=== PATIENT | female | born 1985 | race Hispanic/Latino ===

== ENCOUNTER 2018-07-24 22:04 | Emergency (ER) | payer BC ==
[2018-07-24 22:10] VITALS: BMI 47.4
[2018-07-24 22:11] VITALS: TEMP 99.5
[2018-07-24] MEDS ORDERED: levETIRAcetam 500 MG in Sodium Chloride 0.9% 100 ML IV STA (22:49)
[2018-07-24 23:02] LABS: BASO % 0.4 % (0.0-2.0); EOS # 0.1 K/uL (0.0-0.7); EOS % 1.7 % (0.0-4.0); LYMPH # 1.2 K/uL (1.0-4.3); LYMPH % 15.6 % (20.0-40.0); MEAN CELL VOLUME 91.1 fl (81.0-99.0); MEAN CORPUSCULAR HEMOGLOBIN 30.7 pg (27.0-31.0); MEAN CORPUSCULAR HGB CONC 33.7 g/dL (33.0-37.0); MEAN PLATELET VOLUME 8.7 fl (7.2-11.7); MONO # 0.5 K/uL (0.0-0.8); MONO % 6.8 % (0.0-10.0); NEUT # 5.8 K/uL (1.8-7.0); NEUT % 75.5 % (50.0-75.0); NRBC % 0.2 % (0.0-0.0); RBC 3.92 Mil/uL (3.80-5.20); RED CELL DISTRIBUTION WIDTH 13.1 % (11.5-14.5); WHITE BLOOD COUNT 7.7 K/uL (4.8-10.8)
[2018-07-24 23:12] LABS: BLOOD UREA NITROGEN 19 mg/dl (7-17); CALCIUM 9.1 mg/dL (8.4-10.2); GFR NON-AFRICAN AMERICAN > 60
[2018-07-24] MEDS ORDERED: Potassium Chloride 20 mEq ER Tab PO ONE ×2 (23:18→23:27)
[2018-07-24 23:45] LABS: ALB/GLOB RATIO 0.9 (1.0-2.1); ALBUMIN 4.1 g/dL (3.5-5.0); BILIRUBIN,DIRECT 0.1 mg/ml (0.0-0.4)
--- NOTE | 2018-07-25 00:17 | ED PDOC ---
HPI: Seizure Time Seen by Provider: 07/24/18 22:15 Chief Complaint (Nursing): Seizure Chief Complaint (Provider): Seizure History Per: Patient, Family () History/Exam Limitations: no limitations Recent Seizure Activity Began: Mins Ago: (30) Number Of Seizures: One Length Of Seizures (Duration): Minutes (1) Associated Symptoms: denies: Bit Tongue, Incontinence Of Urine, Incontinence Of Stool, Injury As A Result Of Seizure Activity Post-ictal Period: Duration In Mins: (20) Additional Complaint(s): 33 year old female (A0) with a history of tonic clonic seizures presents to the ED for evaluation after 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 Patient denies head injury, fall, currently she is not complaining of anything, She is currently compliant with Kepra 500 mg BID although she took last dose of Keppra not on time but late. The last tonic clonic seizure she had was last year in April. Patient is 7 weeks , but denies any pain or bleeding. She feels tired due to but denies chest pain, weakness, numbness, headache, vomiting, or any other medical complaints. Neurologist: not in [place] PMD: not in [place] Past Medical History Reviewed: Historical Data, Nursing Documentation, Vital Signs Vital Signs: Last Vital Signs Temp 99.5 F 07/24/18 22:08 Pulse 138 H 07/24/18 22:08 Resp 20 07/24/18 22:08 BP 141/84 07/24/18 22:08 Pulse Ox 99 07/24/18 22:08 - Medical History PMH: Seizures Other PMH: autoimmune hepatitis - Surgical History Surgical History: No Surg Hx - Family History Family History: States: Unknown Family Hx - Allergies Allergies/Adverse Reactions: Allergies Allergy/AdvReac Type Severity Reaction Status Date / Time No Known Allergies Allergy Verified 07/24/18 22:08 Review of Systems ROS Statement: Except As Marked, All Systems Reviewed And Found Negative Gastrointestinal: Negative for: Vomiting Neurological: Positive for: Seizures. Negative for: Weakness, Numbness, Headache Physical Exam - Reviewed Nursing Documentation Reviewed: Yes Vital Signs Reviewed: Yes - Physical Exam Appears: Positive for: Non-toxic, No Acute Distress Head Exam: Positive for: ATRAUMATIC, NORMAL INSPECTION, NORMOCEPHALIC Skin: Positive for: Normal Color, Warm, Dry Eye Exam: Positive for: Normal appearance, EOMI, PERRL Neck: Positive for: Normal Cardiovascular/Chest: Positive for: Regular Rate, Rhythm. Negative for: Murmur Respiratory: Positive for: Normal Breath Sounds. Negative for: Respiratory Distress Gastrointestinal/Abdominal: Positive for: Normal Exam, Soft. Negative for: Tenderness Back: Positive for: Normal Inspection Extremity: Positive for: Normal ROM (upper and lower). Negative for: Pedal Edema, Deformity Neurologic/Psych: Positive for: Alert, Oriented (x3). Negative for: Motor/Sensory Deficits - Laboratory Results Result Diagrams: 07/24/18 22:59 07/24/18 22:59 - ECG O2 Sat by Pulse Oximetry: 99 (RA) Pulse Ox Interpretation: Normal - Progress Re-evaluation Time: 02:00 Condition: Re-examined, Improved Medical Decision Making Medical Decision Making: Time: 2248 Initial Impression: Recurrent seizure with history of epilepsy and 7 weeks Differential diagnoses include but are not limited to: Complications in , electrolyte abnormalities, UTI Initial Plan: --EKG --BMP -- test --LFT --Magnesium --Urine preg --Urine dip --CBC w/ differentials --Potassium Chloride --Keppra 500 mg IV --US OB Time: 121 US OB Impression: --Single, live intrauterine gestation --No abnormality is seen Impression recurrent seizures. Patient is at baseline. No evidence of related complications. LFT at baseline for patient chronic hepatitis. Not hypertensive in ER. Scribe Attestation: Documented by Megan Vogel, acting as a scribe for Nilay Funes MD Provider Scribe Attestation: All medical record entries made by the Scribe were at my direction and personally dictated by me. I have reviewed the chart and agree that the record accurately reflects my personal performance of the history, physical exam, medical decision making, and the department course for this patient. I have also personally directed, reviewed, and agree with the discharge instructions and disposition. Disposition - Clinical Impression Clinical Impression: Transaminitis, Epileptic seizure, generalized, - Patient ED Disposition Is Patient to be Admitted: No Doctor Will See Patient In The: Office Counseled Patient/Family Regarding: Studies Performed, Diagnosis, Need For Followup - Disposition Disposition: Routine/Home Disposition Time: 02:00 Condition: GOOD Additional Instructions: DARBY ARNOLD, thank you for letting us take care of you today. Your provider was Nilay Funes MD and you were treated for POSS SEIZURE. The emergency medical care you received today was directed at your acute symptoms. If you were prescribed any medication, please fill it and take as directed. It may take several days for your symptoms to resolve. Return to the Emergency Department if your symptoms worsen, do not improve, or if you have any other problems. Please contact your doctor or call one of the physicians/clinics you have been referred to that are listed on the Patient Visit Information form that is included in your discharge packet. Bring any paperwork you were given at discharge with you along with any medications you are taking to your follow up visit. Our treatment cannot replace ongoing medical care by a primary care provider outside of the emergency department. Thank you for allowing the [facility] team to be part of your care today. If you had an X-Ray or CT scan: A Radiologist will review the ED reading if any change in treatment is needed we will contact you. If you had a blood, urine, or wound culture: It will take several days for the results, if any change in treatment is needed we will contact you. If you had an STI test: It will take 48 hours for the results. Please call after 1 week if you have not heard back. Instructions: Seizures, Adult (DC), - The Second Month
[2018-07-25 02:06] VITALS: BP 105/64; PULSE 80; RESP 19
[2018-07-25 03:29] VITALS: O2SAT 99
--- NOTE | 2018-07-25 10:22 | CARD ---
APPROVED REPORT Date of service: 07/24/2018 EKG Measurement Heart [id number] OR [id number] [id number] <Conclusion> Sinus tachycardia Otherwise normal ECG
--- NOTE | 2018-07-25 13:43 | US ---
Date of service: 07/25/2018 PROCEDURE: OB Pelvic Ultrasound HISTORY: , seizures LMP: 06/04/2018 COMPARISON: None available. FINDINGS: UTERUS: Gestational sac: Single intrauterine gestation. Heart rate: 134 bpm. age (Ultrasound estimated): 6 weeks 5 days +/-0 weeks 3 days Rosalind-gestational hemorrhage: None. Date of delivery (Ultrasound estimated) : 03/15/2019 Uterus measures 8.3 x 7.2 x 5.2 cm. Normal in size and appearance. CERVIX: Long and closed. No cervical abnormality seen. RIGHT OVARY: Measures 3.5 x 3.3 x 2 point cm. No mass lesion. Normal flow. LEFT OVARY: Measures 3.3 x 2.6 x 1.9 cm. No solid mass. Normal flow. FREE FLUID: None. OTHER FINDINGS: None. IMPRESSION: Single intrauterine live with ultrasound estimated gestational age of 6 weeks 5 days +/-0 weeks 3 days. Estimated date of delivery by ultrasound is 03/15/2019. No acute abnormality identified in this examination. [facility].
== END 2018-07-25 02:27 | disposition home or self-care (01) ==
LOC: H.ER 22:04
DX: G40.409 Other generalized epilepsy and epileptic syndromes, not intractable, without status epilepticus (principal); R74.0 Nonspecific elevation of levels of transaminase and lactic acid dehydrogenase [LDH]; O99.351 Diseases of the nervous system complicating pregnancy, first trimester; Z3A.01 Less than 8 weeks gestation of pregnancy; K73.9 Chronic hepatitis, unspecified; O26.611 Liver and biliary tract disorders in pregnancy, first trimester
CPT/HCPCS: 76815; 80048; 80076; 81025; 83735; 84702; 85025; 93005; 96365; 99283; J1953

== ENCOUNTER 2018-08-13 21:22 | Emergency (ER) | payer BC ==
[2018-08-13 21:22] VITALS: BMI 47.4
[2018-08-13 21:29] VITALS: O2SAT 100
[2018-08-13] MEDS ORDERED: Sodium Chloride 0.9% 1,000 ML IV STA (21:47)
--- NOTE | 2018-08-13 22:06 | ED PDOC ---
HPI: Seizure <Bucky Renee Y - Last Filed: 08/13/18 23:59> Chief Complaint (Provider): Seizure History Per: Patient, Family History/Exam Limitations: no limitations Recent Seizure Activity Began: Just Before Arrival Number Of Seizures: One Length Of Seizures (Duration): Unknown Additional Complaint(s): Patient is a 33 y/o female with history of seizure disorder who was brought to the ED by her after patient experienced a seizure at home. Patient was alone at the time and as a result the seizure was not witnessed. Patient remembers waking up after falling with sustained injury to right supraorbital area. Patient has a history of seizure disorder and is on Kepra. She is also approximately 10 weeks . She denies abdominal pain and vaginal bleeding. <Edgar Hester - Last Filed: 08/15/18 10:08> Time Seen by Provider: 08/13/18 21:32 Chief Complaint (Nursing): Seizure Past Medical History Vital Signs: Last Vital Signs Temp 98 F 08/13/18 21:27 Pulse 114 H 08/13/18 21:27 Resp 20 08/13/18 21:27 BP 125/79 08/13/18 21:27 Pulse Ox 100 08/13/18 23:13 <Bucky Renee Y - Last Filed: 08/13/18 23:59> Reviewed: Historical Data, Nursing Documentation, Vital Signs Vital Signs: Last Vital Signs Temp 98 F 08/13/18 21:27 Pulse 114 H 08/13/18 21:27 Resp 20 08/13/18 21:27 BP 125/79 08/13/18 21:27 Pulse Ox 100 08/13/18 21:27 - Medical History PMH: Seizures - Family History Family History: States: Unknown Family Hx <KacieEdgar - Last Filed: 08/15/18 10:08> - Allergies Allergies/Adverse Reactions: Allergies Allergy/AdvReac Type Severity Reaction Status Date / Time No Known Allergies Allergy Verified 08/13/18 21:24 Review of Systems ROS Statement: Except As Marked, All Systems Reviewed And Found Negative Gastrointestinal: Negative for: Abdominal Pain Genitourinary Female: Negative for: Vaginal Bleeding Neurological: Positive for: Seizures <KacieEdgar - Last Filed: 08/15/18 10:08> Physical Exam - Reviewed Nursing Documentation Reviewed: Yes Vital Signs Reviewed: Yes - Physical Exam Appears: Positive for: Well, Non-toxic, No Acute Distress Head Exam: Negative for: ATRAUMATIC (right periorbital swelling and ecchymosis with 1 cm laceration lateral to right eyebrows as well as superficial laceration to right upper eyelid; no palpable fracture) Skin: Positive for: Normal Color, Warm, DRY Eye Exam: Positive for: EOMI, Normal appearance, PERRL Neck: Positive for: Normal, Painless ROM, Supple Cardiovascular/Chest: Positive for: Regular Rate, Rhythm. Negative for: Murmur Respiratory: Positive for: Normal Breath Sounds. Negative for: Respiratory Distress Gastrointestinal/Abdominal: Positive for: Normal Exam, Soft. Negative for: Tenderness Back: Positive for: Normal Inspection. Negative for: Vertebral Tenderness, Other (deformity) Extremity: Positive for: Normal ROM. Negative for: Pedal Edema, Deformity Neurologic/Psych: Positive for: Alert, Oriented (x3). Negative for: Motor/Se nsory Deficits <Edgar Hester - Last Filed: 08/15/18 10:08> - Laboratory Results Result Diagrams: 08/13/18 22:26 08/13/18 22:26 <Bucky Renee - Last Filed: 08/13/18 23:59> - Laboratory Results Result Diagrams: 08/13/18 22:26 08/13/18 22:26 - ECG O2 Sat by Pulse Oximetry: 100 (RA) Pulse Ox Interpretation: Normal <Edgar Hester - Last Filed: 08/15/18 10:08> Medical Decision Making Medical Decision Making: Time: 21:46 Initial Plan: Beta HCG CMP CBC w/ diff IV Fluids Acetaminophen Dermabond OB Transvaginal Preg. US Scribe Attestation: Documented by Jose Barrios acting as a scribe for Edgar Hester MD Provider Scribe Attestation: All medical record entries made by the Scribe were at my direction and personally dictated by me. I have reviewed the chart and agree that the record a ccurately reflects my personal performance of the history, physical exam, medical decision making, and the department course for this patient. I have also personally directed, reviewed, and agree with the discharge instructions and disposition. <Edgar Hester - Last Filed: 08/15/18 10:08> Disposition <Bucky Renee - Last Filed: 08/13/18 23:59> - Patient ED Disposition Is Patient to be Admitted: Transfer of Care - Disposition Disposition: Transfer of Care Disposition Time: 00:00 Patient Signed Over To: Bucky Renee <Edgar Hester - Last Filed: 08/15/18 10:08> - Clinical Impression Clinical Impression: Seizure, , Seizure disorder during - Disposition Condition: IMPROVED Additional Instructions: follow up with your doctor in 1-2 days return to the ED with any worsening or concerning symptoms Instructions: Seizures, Adult (DC) Forms: [employer] (Jordanian)
[2018-08-13 22:32] LABS: BASO % 0.3 % (0.0-2.0); EOS # 0.1 K/uL (0.0-0.7); EOS % 1.1 % (0.0-4.0); HEMOGLOBIN 11.5 g/dL (12.0-16.0); LYMPH % 12.1 % (20.0-40.0); MEAN CELL VOLUME 91.1 fl (81.0-99.0); MEAN CORPUSCULAR HEMOGLOBIN 30.2 pg (27.0-31.0); MEAN CORPUSCULAR HGB CONC 33.2 g/dL (33.0-37.0); MEAN PLATELET VOLUME 8.4 fl (7.2-11.7); MONO # 0.6 K/uL (0.0-0.8); MONO % 7.7 % (0.0-10.0); NEUT # 6.5 K/uL (1.8-7.0); NEUT % 78.8 % (50.0-75.0); RBC 3.79 Mil/uL (3.80-5.20); RED CELL DISTRIBUTION WIDTH 13.1 % (11.5-14.5); WHITE BLOOD COUNT 8.2 K/uL (4.8-10.8)
[2018-08-13 22:55] LABS: ALB/GLOB RATIO 0.9 (1.0-2.1); ALBUMIN 3.6 g/dL (3.5-5.0); ALT/SGPT 140 U/L (9-52); AST/SGOT 90 U/L (14-36); BLOOD UREA NITROGEN 15 mg/dl (7-17); CALCIUM 8.7 mg/dL (8.4-10.2); GFR NON-AFRICAN AMERICAN > 60
[2018-08-13] MEDS ORDERED: Potassium Chloride 20 mEq ER Tab PO ONE ×2 (22:56→23:47)
--- NOTE | 2018-08-14 00:20 | ED PDOC ---
- Laboratory Results Result Diagrams: 08/13/18 22:26 08/13/18 22:26 - ECG O2 Sat by Pulse Oximetry: 100 (RA) Pulse Ox Interpretation: Normal Medical Decision Making Medical Decision Makin Patient endorse to me by Dr. Hester, pending abdomen and OB US. 2351 Abdomen US FINDINGS: LIVER: Unremarkable. GALLBLADDER: Partially contracted. No gallstone. No gallbladder wall thickening. No pericholecystic fluid. COMMON BILE DUCT: No dilation. 4.6 mm. PANCREAS: Unremarkable where visualized. The distal pancreas is obscured by overlying bowel gas. KIDNEYS: Unremarkable. Normal renal contours. No renal mass or calculus. No hydronephrosis. SPLEEN: Unremarkable. AORTA: No aneurysm. IVC: Unremarkable as visualized. MISCELLANEOUS: No other significant findings identified. IMPRESSION: Unremarkable complete abdominal ultrasound. Electronically signed on Aug 13, 2018 11:51:04 PM EDT by: Acosta Osei M.D., [facility] Certified By [facility]BR [facility] CBC[facility] Fellowship Trained MRI and CT Specialist [id number] OB US Findings: COMMENTS: A single intrauterine is identified with crown/rump length of 3.7 cm, which corresponds to the mean estimated gestational age of 9 weeks 0 days. heart motion is present, 168 beats per minute. pole is identified. Yolk sac is identified measuring 0.8 x 0.5 cm. Gestational sac measures 37 cm. This will correlate with age obtained by CRL method. The uterus is anteverted measuring 11.9 x 7.5 x 9.2 cm. The right ovary measures 4.2 x 2.7 x 2.2 cm. The left ovary measures 4.1 x 3.5 x 1.9 cm. Both ovaries are free of masses. Blood flow is demonstrated within both ovaries. IMPRESSION: Single, live, intrauterine gestation, 9 weeks 0 days based on todays crown/rump length. Electronically signed on Aug 14, 2018 12:33:16 AM EDT by: Acosta Osei M.D., [facility] Certified By ABR & CBC[employer] Fellowship Trained MRI and CT Specialist [id number] Repeat vitals for discharge. 0103 Patient is alert, awake and oriented x3, aware of results, stable for discharge. will follow up outpt ambulating w steady gait Scribe Attestation: Documented by Sadia Jones, acting as a scribe for Cyndie Renee MD. Provider Scribe Attestation: All medical record entries made by the Scribe were at my direction and personally dictated by me. I have reviewed the chart and agree that the record accurately reflects my personal performance of the history, physical exam, medical decision making, and the department course for this patient. I have also personally directed, reviewed, and agree with the discharge instructions and disposition. Disposition Counseled Patient/Family Regarding: Studies Performed, Diagnosis, Need For Followup - Clinical Impression Clinical Impression: Seizure, , Seizure disorder during - POA Present On Arrival: None - Disposition Disposition: Routine/Home Disposition Time: 01:03 Condition: IMPROVED Additional Instructions: follow up with your doctor in 1-2 days return to the ED with any worsening or concerning symptoms Instructions: Seizures, Adult (DC) Forms: [employer] (Djiboutian)
[2018-08-14 00:49] VITALS: BP 105/64; PULSE 75; RESP 18; TEMP 98
--- NOTE | 2018-08-14 12:33 | US ---
Date of service: 08/13/2018 HISTORY: Elevated LFTs COMPARISON: None. TECHNIQUE: Sonographic evaluation of the right upper quadrant of the abdomen. FINDINGS: LIVER: Measures 15 cm in length. Normal echogenicity of the liver parenchyma. No mass. No intrahepatic bile duct dilatation. GALLBLADDER: Unremarkable. No gallstones. COMMON BILE DUCT: Measures 4.6 mm. No stones. No dilatation. PANCREAS: Unremarkable as visualized. No mass. No ductal dilatation. RIGHT KIDNEY: Measures 10 x 4.7 x 4.7 cm in length. Normal echogenicity. No calculus, mass, or hydronephrosis. AORTA: No aneurysmal dilatation. IVC: Unremarkable. OTHER FINDINGS: None . IMPRESSION: No evidence of cholelithiasis or cholecystitis. No evidence of right hydronephrosis. Preliminary report with concordant findings was submitted to the referring physician.
--- NOTE | 2018-08-14 12:37 | US ---
Date of service: 08/13/2018 PROCEDURE: OB Pelvic Ultrasound HISTORY: Seizure LMP: 06/04/2018 COMPARISON: Comparison is made to the previous study dated 07/25/2018 FINDINGS: UTERUS: Gestational sac: Single intrauterine gestation. Heart rate: 168 bpm. age (Ultrasound estimated): 9 weeks 2 days +/-0 weeks 5 days Rosalind-gestational hemorrhage: None. Date of delivery (Ultrasound estimated) : 03/16/2019 Uterus measures 11.9 x 7.5 x 9.3 cm. Normal in size and appearance. CERVIX: . Long and closed. No cervical abnormality seen. RIGHT OVARY: Measures 4.2 x 2.7 x 2.2 cm. No mass lesion. Normal flow. LEFT OVARY: Measures 4.1 x 3.5 x 1.9 cm. No solid mass. Normal flow. FREE FLUID: None. OTHER FINDINGS: None. IMPRESSION: Single intrauterine live with ultrasound estimated gestational age of 9 weeks 2 days +/-0 weeks 5 days. Estimated date of delivery by ultrasound is 03/16/2019.
== END 2018-08-14 01:12 | disposition home or self-care (01) ==
LOC: H.ER 21:22
DX: O99.351 Diseases of the nervous system complicating pregnancy, first trimester (principal); Z3A.10 10 weeks gestation of pregnancy
CPT/HCPCS: 76705; 76815; 80053; 84702; 85025; 99285; J7030

== ENCOUNTER 2019-03-04 20:28 | Inpatient (IN) | payer BC ==
[2019-03-04] MEDS ORDERED: Lactated Ringer's 1,000 ML IV ONE (20:59)
[2019-03-04] MEDS ORDERED: Lactated Ringer's 1,000 ML IV SCH (21:00)
[2019-03-04 21:04] VITALS: BMI 25.7
--- NOTE | 2019-03-04 23:29 | OBHP ---
Datetime: 03/04/2019 21:12 IP Adm Impression: Term, intrauterine IP Admit Plan: Initiate labor protocol Admit Comment, IP Provider: 33 y/o 39.0 weeks based on LMP with ZACHARY 03/11/19 presents to L_D for IOL for cholestasis of and H/O seizure. Patient reports irregular CTx but denies LOF or VB . Good movements. Patient has H/O 2 episodes of seizures in 1st trimester and currently on Kepp ra 1250 mg BID. Reports generalzied itching since past 3 weeks. Denies any headache, dizziness, CP, S OB, abdominal pain, urinary symptoms. care: Dr. Castellanos, Epilepsy, Autoimmune hepatitis, CHolestasis of OBHx: G1: Current PMHx: Epilepsy, Autoimmune hepatitis, CHolestasis of PSHx: Denies Allergies: NKDA F/H: Denies SocialHx: Denies ETOH/smoking/drugs Meds: Keppra 1250 mg BID, Folic acid 4 mg, PNVs, Budesonide 6 mg daily. PE Gen: NAD Chest: RRR, S1S2 present Lungs: CTAB ABdomen: Soft, gravid , NT Ext: No pedal edema Neuro: AAO x 3, CN 2-12 grossly intact, Normal mood and affact A/P: 33 y/o 39.0 weeks based on LMP with ZACHARY 03/11/19 presents to L_D for IOL for cholestasis of and H/O seizure. - admit for IOL - GBS neg, HIV NR, RPR NR, HBsAg neg, GC/CHl neg, Immune rubella - Resume Keppra, Budesonide, FA. - CBC, T_S - LR - Cervidil 10 mg Vag insert - Anesthesia consult - Monitor for cervical change. Case discussed with Dr. Omar Bai, PGY1 Addendum: I saw and examined patient. Cervidil placed vaginally. heart tracing category 1. I discus sed induction process with patient and all patient questions answered. Omar Pelvic Type - PN: Adequate Extremities - PN: Normal Abdomen - PN: Normal Back - PN: Normal Breast - PN: Not Done Lungs - PN: Normal Heart - PN: Normal Thyroid - PN: Not Done Neurologic - PN: Not Done HEENT - PN: Normal General - PN: Normal Presentation-Admit: Vertex FHR - Baseline A Provider: 130 Membranes, Provider: Intact Contraction Comments Provider: none IP Hx Assessment: The History has been Reviewed and is Current Vital Signs Provider: Reviewed; Within Normal Limits IP Indication for Induction Oth: Cholestasis of , Epilepsy IP Chief Complaint: Scheduled induction of labor NICHD Variability Prov Fetus A: Moderate 6-25bpm NICHD Accel Fetus A IP Provider: [id number] FHR Category Provider Fetus A: Category I NICHD Decel Fetus A IP Provider: None Dilatation, Provider: FT Effacement, Provider: 0 Station, Provider: -3 Genitourinary Exam: Normal DTRs - PN: Not Done
[2019-03-05 02:03] LABS: BASO % 0.3 % (0.0-2.0); EOS # 0.1 K/uL (0.0-0.7); EOS % 1.3 % (0.0-4.0); LYMPH # 1.8 K/uL (1.0-4.3); LYMPH % 17.1 % (20.0-40.0); MEAN CELL VOLUME 87.2 fl (81.0-99.0); MEAN CORPUSCULAR HEMOGLOBIN 29.1 pg (27.0-31.0); MEAN CORPUSCULAR HGB CONC 33.4 g/dL (33.0-37.0); MEAN PLATELET VOLUME 10.5 fl (7.2-11.7); MONO # 0.8 K/uL (0.0-0.8); MONO % 8.1 % (0.0-10.0); NEUT # 7.6 K/uL (1.8-7.0); NEUT % 73.2 % (50.0-75.0); RBC 3.78 Mil/uL (3.80-5.20); RED CELL DISTRIBUTION WIDTH 13.8 % (11.5-14.5); WHITE BLOOD COUNT 10.3 K/uL (4.8-10.8)
[2019-03-05] MEDS ORDERED: levETIRAcetam 100 mg/ml (5ml) Oral Syringe PO SCH (08:00)
[2019-03-05] MEDS: LEVETIRACETAM 500 MG PO SCH ×2 (08:24→20:00)
[2019-03-05] MEDS: Patient's Own Med (Levetiracetam [Keppra] 750 MG) PO SCH ×2 (08:25→20:00)
[2019-03-05] MEDS ORDERED: FOLIC ACID 1 MG PO SCH (09:00)
[2019-03-05] MEDS ORDERED: Phenaphthazine-PH Test Paper VI ONE (10:58)
[2019-03-05] MEDS ORDERED: BUDESONIDE 3 MG PO SCH (11:00)
[2019-03-05] MEDS ORDERED: Oxytocin 30 UNIT in NS 500 ml 30 UNITS/500 ML BAG IV ONE ×2 (11:27→13:42)
[2019-03-05] MEDS ORDERED: Oxycodone/Acetaminophen 5/325 mg Tab PO PRN ×2 (12:55)
[2019-03-05] MEDS ORDERED: Fentanyl/Bupivacaine HCl 250 ML EPI ONE (15:32)
[2019-03-05] MEDS ORDERED: Lactated Ringer's 1,000 ML IV SCH (17:10)
[2019-03-05] MEDS ORDERED: Lidocaine 1% Inj (20ml) ONE (20:37)
[2019-03-06] MEDS ORDERED: Benzocaine/Menthol SPRAY TOP PRN ×2 (00:14→03:33)
[2019-03-06] MEDS ORDERED: Oxycodone/Acetaminophen 5/325 mg Tab PO PRN ×5 (00:14→03:33)
--- NOTE | 2019-03-06 01:04 | OBDS ---
MATERNAL INFORMATION Provider Comments: Delivered live baby boy at 12:05 AM the baby was bulb suctioned on the perineum a nd transferred to maternal chest Cord was clamped cut 3 vessels noted cord blood was obtained and sen t to the lab. The placenta was delivered at 12:12 AM intact. The estimated blood loss was 100 cc. There was a first-degree laceration which was repaired with 2-0 Rapide. The mother tolerated the pro cedure well baby went to well baby nursery with Apgars 9 9 LABOR SUMMARY EDC: 03/11/2019 00:00 No. Babies in Womb: 0 LABOR INFORMATION Cervical Ripening Agents: Cervidil Group B Beta Strep: Negative MEMBRANES Membranes Rupture Method: Artificial Amniotic Fluid Color: Clear Amniotic Fluid Amount: Moderate Amniotic Fluid Odor: Normal PRESENTATION/POSITION BABY A Presentation: Cephalic
[2019-03-06] MEDS ORDERED: Oxytocin 30 UNIT in NS 500 ml 30 UNITS/500 ML BAG IV ONE (03:33)
[2019-03-06] MEDS: Multivitamin With Minerals Tab PO SCH (08:59)
[2019-03-06] MEDS ORDERED: Multivitamin With Minerals Tab PO SCH ×2 (09:00)
[2019-03-06] MEDS ORDERED: Patient's Own Med (Levetiracetam [Keppra] 750 MG) PO SCH ×2 (09:00→17:00)
[2019-03-06] MEDS ORDERED: FOLIC ACID 1 MG PO SCH (09:00)
[2019-03-06] MEDS ORDERED: LEVETIRACETAM 500 MG PO SCH ×2 (09:00→17:00)
[2019-03-06] MEDS: BUDESONIDE 6 MG PO SCH (11:00)
[2019-03-06] MEDS: FOLIC ACID 1 MG PO SCH (19:59)
[2019-03-06] MEDS: Patient's Own Med (Levetiracetam [Keppra] 750 MG) PO SCH (20:08)
[2019-03-06] MEDS: LEVETIRACETAM 500 MG PO SCH (20:09)
[2019-03-07] MEDS: Multivitamin With Minerals Tab PO SCH (08:20)
[2019-03-07] MEDS: Patient's Own Med (Levetiracetam [Keppra] 750 MG) PO SCH (08:23)
[2019-03-07] MEDS: LEVETIRACETAM 500 MG PO SCH (08:23)
[2019-03-07] MEDS: FOLIC ACID 1 MG PO SCH (08:24)
[2019-03-07] MEDS: BUDESONIDE 6 MG PO SCH (10:27)
--- NOTE | 2019-03-07 14:11 | OBPPN ---
Datetime: 03/07/2019 14:05 PP Pain Prov: Within normal limits PP Nausea Prov: Denies PP Flatus Prov: Yes PP Breasts Prov: Not Done PP Heart Prov: Normal PP Lungs Prov: Normal PP Abdomen/Uterus Prov: Normal PP Lochia Prov: Not Done PP Vulva/Perineum Prov: Not Done PP CVA Tenderness Prov: Normal PP Extremities Prov: Normal PP Impression Prov: Normal progression PP Plan Prov: Discharge PP Progress Note Prov: Patient doing well ambulating tolerating diet pain well controlled Vital signs stable afebrile Uterus firm below the umbilicus S Extremities no [facility] day number Patient desires early discharge discharge Informed consent obtained for circumcision patient informed of the risk benefits alternatives the procedure would like to proceed with removal of foreskin. Patient to follow-up with PMD in 6 weeks Nothing per vagina Vital Signs Provider PP: Reviewed
--- NOTE | 2019-03-07 14:11 | OBDCSUM ---
Datetime: 03/07/2019 14:00 Discharged to, Provider: Home Follow up at, Provider: MD Vladimir Disch Instr Activity: Normal activity Disch Instr Diet: Regular Discharge Instructions, Provider: Routine instructions given Discharge Diagnosis, Provider: Term Delivered Discharge Time: 03/07/2019 14:00 Follow up in weeks, Provider: 6 Weeks Disch Referrals: None Contraception discussed, Prov: Yes Disch Activity Restrictions: Minimize walking; Minimize stair-climbing; No sexual activity; Nothing in vagina - Imbery, tampons, douche Discharge Comment, Provider: Patient cleared for discharge Contraception after Delivery: Undecided
[2019-03-08 03:42] VITALS: BP 109/70; PULSE 86; RESP 18; TEMP 98; O2SAT 99
== END 2019-03-07 21:15 | disposition home or self-care (01) | DRG 805 ==
LOC: H.L&D 20:59 → H.OB/GYN 03-06 03:10
PROVIDERS: ADMIT Obstetrics & Gynecology; ATTEND Obstetrics & Gynecology
PROC: 4A1HXCZ Monitoring of Products of Conception, Cardiac Rate, External Approach (ICD-10-PCS; 2019-03-04)
PROC: 10E0XZZ Delivery of Products of Conception, External Approach (ICD-10-PCS; principal; 2019-03-06)
PROC: 0HQ9XZZ Repair Perineum Skin, External Approach (ICD-10-PCS; 2019-03-06)
PROC: 10907ZC Drainage of Amniotic Fluid, Therapeutic from Products of Conception, Via Natural or Artificial Opening (ICD-10-PCS; 2019-03-06)
DX: O26.613 Liver and biliary tract disorders in pregnancy, third trimester (principal); K83.1 Obstruction of bile duct; O99.354 Diseases of the nervous system complicating childbirth; O70.0 First degree perineal laceration during delivery; G40.909 Epilepsy, unspecified, not intractable, without status epilepticus; Z37.0 Single live birth; Z3A.39 39 weeks gestation of pregnancy